=== PATIENT | female | born 1950 | race Caucasian/White ===

== ENCOUNTER → 2018-02-12 09:33 | Outpatient (CLI) | payer MEDICARE, OTHER, SELFPAY ==
--- NOTE | 2018-02-12 09:35 | MM_ITS ---
MM Dig screening mamm BI w/CAD ORDERING PHYSICIAN : Andrea Herzog MD PATIENT AGE: 67 years GENDER: Female COMPARISON: January 2017, 2015, 2014, 2014.,... As well as January 2013 bilateral digital mammogram studies INDICATION: ITS.REASON: screening no hormones. No new complaints. Family history. Maternal cousin..., and aunt with breast cancer, postmenopausal TECHNIQUE: Standard CC and MLO images were obtained. R2 CAD reviewed. FINDINGS: Low-density breast bilaterally with generalized replacement. . . Stable overall findings with prior films helpful in supporting such. RIGHT BREAST:Faint residual density area density in nodularity at the lateral right breast unchanged. LEFT BREAST:Small, likely area of density at the lateral left breast unchanged since prior studies.. A density is been seen in this area since and fairly stable since study from 2013. No significant new findings IMPRESSION: Stable bilateral mammogram no significant new findings. Bilateral follow-up in one year. Long-standing Stable mild asymmetric densities. BI-RADS Category: 2 Benign Finding(s) RECOMMENDED FOLLOW-UP: 1YR 1 YEAR FOLLOW-UP (A letter has been sent to the patient regarding results of the study.)
== END ==
PROVIDERS: Family Provider Family Medicine; PCP Family Medicine; Visit Provider Obstetrics & Gynecology
DX: Z12.31 Encounter for screening mammogram for malignant neoplasm of breast (principal)
CPT/HCPCS: 77067

== ENCOUNTER → 2019-02-18 09:44 | Outpatient (CLI) | payer MEDICARE, OTHER, SELFPAY ==
--- NOTE | 2019-02-18 09:46 | XR_ITS ---
PROCEDURE: XR DEXA AXIAL SKELETON CLINICAL HISTORY: screening COMPARISON: No exams were available for comparison TECHNIQUE: FINDINGS: The L1-L4 density is 1.366 grams/centimeter sq with a T-score of 1.5. Mean hip density has a T-score of 0.978 grams/centimeters sq with a T-score of -0.7. IMPRESSION: Normal bone density with low fracture risk. Recommend follow-up exam January 2021 Dictated by: Curtis Baker MD 02/18/2019 11:06 Signed by: <Electronically signed by Curtis Baker MD in [place]> 02/18/2019 11:06
--- NOTE | 2019-02-18 09:46 | MM_ITS ---
PROCEDURE: MM DIG SCREENING MAMM BI W/CAD Patient Age:68Y CLINICAL INDICATION: Routine screening mammogram. No hormones but no new complaints.. Family history: Maternal cousins and maternal aunt postmenopausal breast cancer history COMPARISON: [facility] DIGITAL MAMM-SCREEN BILATERAL from 01/26/2012 [facility] DIG MAMM-SCREEN SADAF from 01/28/2013 [facility] DIG MAMM-SCREEN SADAF from 01/30/2014 [facility] DIG MAMM-SCREEN SADAF from 02/01/2015 [facility] DIG MAMM-SCREEN SADAF from 02/04/2016 [facility] DIG MAMM-SCREEN SADAF W/CAD from 02/06/2017 [facility] MM Dig screening mamm BI w/CAD from 02/12/2018 TECHNIQUE: Standard CC and MLO images were obtained. R2 CAD reviewed. Repeat left MLO included Note difficult to position due to rotator cuff tear cannot elevate arms for MLO FINDINGS: Overall lower density breast with generalized fatty replacement. Minimal residual fibroglandular elements Right breast: Unchanged. Stable follow-up 1 year. Left breast longstanding stable area of nodularity at the lateral left breast. 8 mm transverse x up to 12 mm AP at. This ovoid density unchanged since multiple studies dating back to 2011. Can be followed safely IMPRESSION: Stable bilateral mammogram with no new areas of concern. Stable longstanding area nodularity at the lateral left breast unchanged since 2011. Can be followed safely Bilateral mammogram 1 year recommended BI-RAD Category: 2 Benign Finding(s) FOLLOW-UP: 1YR 1 Year Follow-up (A letter has been sent to the patient regarding results of the study.) Dictated by: Munir Dozier MD 02/18/2019 12:06 Signed by: <Electronically signed by Munir Dozier MD in [place]> 02/25/2019 11:38
== END ==
PROVIDERS: PCP Family Medicine; Visit Provider Obstetrics & Gynecology
DX: Z78.0 Asymptomatic menopausal state (principal); Z12.31 Encounter for screening mammogram for malignant neoplasm of breast
CPT/HCPCS: 77067; 77080